=== PATIENT | female | born 1970 | race Two or more races ===

== ENCOUNTER 2023-06-07 18:34 | Emergency (ER) | payer SELFPAY ==
[~2023-06-07] VITALS: Ht 165.1 cm; Wt 75.0 kg
[2023-06-07 23:59] VITALS: BP 171/91; PULSE 77; RESP 18; TEMP 98.3; O2SAT 98
[2023-06-07] MEDS: TETANUS-DIPTH-ACEL PERTUSSIS 0.5ML SYR Tdap IM ONE (23:59)
== END 2023-06-07 23:59 | disposition home or self-care (01) ==
LOC: ER 18:34
DX: S61.211A Laceration without foreign body of left index finger without damage to nail, initial encounter (principal); W26.0XXA Contact with knife, initial encounter; Y93.89 Activity, other specified; Y92.89 Other specified places as the place of occurrence of the external cause; Y99.8 Other external cause status
CPT/HCPCS: 12002; 90471; 90715